=== PATIENT | male | born 1960 | race Caucasian/White ===

== ENCOUNTER 2018-07-13 20:28 | Emergency (ER) | payer MEDICAID, OTHER ==
--- NOTE | 2018-07-13 20:33 | NUR ---
Patient registered in error. Patient wanted [email or web address] go to medical records. He did not know it was not necessary to come into the ER for medical records office
== END 2018-07-13 20:34 | disposition left against medical advice (07) ==
LOC: ER 20:28
DX: Z53.21 Procedure and treatment not carried out due to patient leaving prior to being seen by health care provider (principal)